=== PATIENT | female | born 1950 | race Caucasian/White ===

== ENCOUNTER 2023-03-25 18:26 | Emergency (ER) | payer MEDICARE, SELFPAY ==
[2023-03-25 18:29] VITALS: BP 162/89; PULSE 68; RESP 15; O2SAT 100; BMI 25.2
[2023-03-25 19:10] VITALS: BP 144/92; PULSE 74; RESP 24; O2SAT 100
--- NOTE | 2023-03-25 19:17 | CTR_ITS ---
PROCEDURE INFORMATION: Exam: CT Cervical Spine Without Contrast Exam date and time: 03/25/2023 7:26 PM Age: 72 years old Clinical indication: Injury or trauma; Fall; Blunt trauma; Injury date: 03/25/23 TECHNIQUE: Imaging protocol: Computed tomography of the cervical spine without contrast. Radiation optimization: All CT scans at this facility use at least one of these dose optimization techniques: automated exposure control; mA and/or kV adjustment per patient size (includes targeted exams where dose is matched to clinical indication); or iterative reconstruction. REPORTING DATA: Count of CT and Cardiac NM exams in prior 12 months: This patient has received 0 known CTs and 0 known cardiac nuclear medicine studies in the 12 months prior to the current study. COMPARISON: No relevant prior studies available. RADIATION DOSE METRICS: Total DLP (mGy-cm): 148.6 FINDINGS: Bones/joints: No acute fracture. Trace anterolisthesis at C3-C4 and C4-C5, most likely degenerative. Chronic degenerative changes without significant spinal stenosis. Lungs: A few small calcified granulomas in the left lung apex. Esophagus: Small calcified right paraesophageal and paratracheal lymph nodes. Soft tissues: Visualized soft tissues demonstrate no acute abnormality. CT/CT cervical spin wo con* [id number] IMPRESSION: 1. No acute fracture. 2. Trace anterolisthesis at C3-C4 and C4-C5, most likely degenerative.
--- NOTE | 2023-03-25 19:17 | CTR_ITS ---
PROCEDURE INFORMATION: Exam: CT Head Without Contrast Exam date and time: 03/25/2023 7:26 PM Age: 72 years old Clinical indication: Injury or trauma; Fall; Blunt trauma (contusions or hematomas); Additional info: Call on doac TECHNIQUE: Imaging protocol: Computed tomography of the head without contrast. Radiation optimization: All CT scans at this facility use at least one of these dose optimization techniques: automated exposure control; mA and/or kV adjustment per patient size (includes targeted exams where dose is matched to clinical indication); or iterative reconstruction. REPORTING DATA: Count of CT and Cardiac NM exams in prior 12 months: This patient has received 0 known CTs and 0 known cardiac nuclear medicine studies in the 12 months prior to the current study. COMPARISON: No relevant prior studies available. RADIATION DOSE METRICS: Total DLP (mGy-cm): 1017.6 FINDINGS: Brain: No other acute intracranial hemorrhage appreciated. 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 Mild chronic white matter changes, likely secondary to chronic small-vessel ischemic changes. Incidental retrocerebellar arachnoid cyst. Cerebral ventricles: No ventriculomegaly. Paranasal sinuses: Visualized sinuses are unremarkable. No fluid levels. Mastoid air cells: Visualized mastoid air cells are well aerated. Bones/joints: Unremarkable. No acute fracture. Soft tissues: Unremarkable. Other findings: Tiny hyperdense focus seen in the anterior left frontal region on image [address]/CT head wo con* [id number] IMPRESSION: 1. Tiny hyperdense focus seen in the anterior left frontal region on image 16 of series 2. Could be a calcification or artifact, but can not exclude a tiny focus of acute subarachnoid hemorrhage. 2. No other acute intracranial hemorrhage appreciated. 3. 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
--- NOTE | 2023-03-25 19:22 | W.ED.HEATRA ---
HPI - Head Injury General: Chief complaint: Head Injury Stated complaint: Hit Head Time Seen by Provider: 03/25/23 18:55 Source: patient and family Mode of arrival: ambulatory Limitations: no limitations History of Present Illness: This patient comes to the emergency department because of a fall injury. She apparently had a fall at home approximately 520 or 530 today. She states this is occurred just like other falls she has. She predominately loses her balance and falls. She has a walker that she is supposed to be using when she ambulates but this was only a short distance and she thought she could make it. She allegedly takes a anticoagulant medication to help with stroke prevention from her atrial fibrillation. She denies any prodrome of lightheadedness, palpitations, syncope etc. She states that she hit her head on the right side. She also apparently has had some mild neck soreness although she always has neck pain from arthritis. She denies any other constitutional complaints at this time. She takes Eliquis for stroke prevention MD Complaint: head injury Location of injury: parietal Associated symptoms: Reports neck pain; Deny nausea, syncope or vomiting Review of Systems Const: Denies: fever(s) or chills Eyes: Denies: change in vision Card: Reports: irregular heart rhythm; Denies: chest pain, syncope or pre-syncope Resp: Denies: dyspnea, productive cough or non-productive cough GI: Denies: abdominal pain, nausea, vomiting or diarrhea Musc: Reports: neck pain; Denies: back pain, extremity pain or extremity swelling Skin/Breast: Denies: rash Neuro: Reports: headache(s) and frequent falls; Denies: numbness in extremities, weakness in extremities, Slurred speech present or seizure-like activity Psych: Denies: anxiety, depression or mood swings Physical Exam Narrative: EXAM NARRATIVE: He appears to be alert and in no acute distress. She makes good eye contact and her speech is goal-directed. Const: COMMON NORMALS: no acute distress, average body habitus, patient oriented x3 and alert GENERAL APPEARANCE: cooperative and comfortable HENMT: COMMON NORMALS: normocephalic and atraumatic HEAD & SCALP: normocephalic and atraumatic; no contusion, no hematoma, no laceration and no palpable skull fracture FACE & SINUS: normal facial exam Eye: COMMON NORMALS: Equal, round and reactive pupils present, EOMs intact bilaterally and conjunctivae normal CONJUNCTIVA: Yes conjunctivae normal PUPIL: Yes Equal, round and reactive pupils present Neck/C-Spine: COMMON NORMALS: full ROM CERVICAL SPINE: No Cervical spine tenderness, No step off deformity, No Paracervical muscle tenderness, No Paracervical spasm and No Trapezius muscle tenderness Chest: COMMONS NORMALS: normal inspection of the chest and normal palpation of entire chest wall Resp: COMMON NORMALS: normal respiratory effort, No retractions and clear to auscultation bilaterally EFFORT & INSPECTION: Yes able to speak in complete sentences AUSCULTATION: clear to auscultation bilaterally Cardio: COMMON NORMALS: regular rate, regular rhythm, No murmurs present (Cardio) and Peripheral pulses 2+ throughout RATE: regular rate RHYTHM: regular rhythm PERIPHERAL PULSES: Peripheral pulses 2+ throughout GI: COMMON NORMALS: Normal to inspection, nondistended, normoactive bowel sounds present : COMMON NORMALS: Yes no CVA tenderness BLADDER/KIDNEY EXAM: Yes no CVA tenderness Back/Pelvis: COMMON NORMALS: no CVA tenderness and thoracic and lumbar spine normal to inspection Extremity: COMMON NORMALS: normal to inspection, full ROM, capillary refill normal, no calf tenderness and no pedal edema Neuro: COMMON NORMALS: patient oriented x3, moves all extremities, no focal motor deficits and no sensory deficits noted SENSORIUM/ORIENTATION: Yes alert CRANIAL NERVES: Yes CN normal except as noted Course Reevaluation(s): Reevaluation #1: Repeat evaluation reveals the patient to be stable any new or focal findings on reexamination. I discussed current findings with both she and family. Advised no apixaban for the next 24 hours. Also discussed return precautions. Time: 21:10 Consultations: Consultation #1: Placed a consultation into neurosurgery at [facility] and the neurosurgeon on-call Dr. Pulido is gracious enough to review the CT scans and provide input that he did not think it was a significant finding on her current CT scan based upon his review. Time: 21:08 Vital Signs: Vital signs: Vital Signs Pulse Rate 71 03/25/23 20:37 Respiratory Rate 24 H 03/25/23 20:37 Blood Pressure 157/115 03/25/23 20:37 Pulse Oximetry 94 03/25/23 20:37 Oxygen Delivery Me thod Room Air 03/25/23 19:10 MDM - Head Injury Medcial Decision Making This 72-year-old lady who has history of remote stroke who has had balance issues as a result of that event and currently takes apixaban because of atrial fibrillation to reduce stroke risk is our emergency department today because of a ground-level fall. She states that she was just planning on walking a very short distance of a few steps and stood up to do so and then went up falling striking her head. She normally uses a walker for aiding in her ambulation but did not use that for the short walk. She had no other complaints of other injury. There was no prodrome of syncope lightheadedness chest pain etc. Clinical examination is reassuring at . She had a GCS of 15. She had no evidence of scalp laceration. She had minimal tenderness to the right frontal region. There is no step-off etc. Her cervical spine was unremarkable for any midline tenderness or step-off and she had normal range of motion. Imaging was obtained which was notable and that the radiologist had some question about a single slice whether or not it represented any pathologic changes such as a minute subarachnoid hemorrhage etc. Her cervical spine was unremarkable. We are able to obtain a consultation from neurosurgery at [facility] who reviewed CT scans and did not feel that it represented a pathologic issue at this time. Her risk of delayed bleeding is extremely low and DOACs by current literature support however not 0. This was discussed with patient and her accompanying family. We did recommend that she not take her apixaban for 24 hours and then resume normal dosing. We also discussed return precautions. Stable at this time for discharge with family care. Lab Data I reviewed the patient's lab results. Radiology Impressions Cervical Spine CT 03/25/23 19:17 IMPRESSION: 1. No acute fracture. 2. Trace anterolisthesis at C3-C4 and C4-C5, most likely degenerative. Head CT 03/25/23 19:17 IMPRESSION: 1. Tiny hyperdense focus seen in the anterior left frontal region on image 16 of series 2. Could be a calcification or artifact, but can not exclude a tiny focus of acute subarachnoid hemorrhage. 2. No other acute intracranial hemorrhage appreciated. 3. 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 ADDENDUM: 03/25/232004 THIS REPORT CONTAINS FINDINGS THAT MAY BE CRITICAL TO PATIENT CARE. The findings were verbally communicated via telephone conference with DALLAS Romo at 8:04 PM CDT on 03/25/2023. The findings were acknowledged and understood. All radiology interpretation(s) finalized by discharge EKG Data EKG 1: I personally reviewed and interpreted this EKG as follows: Interpretation: Contemporaneous review of resting EKG reveals a ventricular rate of 69 bpm. Rhythm is consistent with atrial fibrillation with a controlled ventricular response. QRS duration is normal. Corrected QT intervals normal. She has no acute ST-T wave changes noted. Discharge Plan Discharge Patient Disposition: Home Clinical Impression: Fall from ground level, Closed head injury, Atrial fibrillation, chronic Condition: Stable Prescriptions: No Action Unable to Assess Discharge Orders: Discharge ED (Routine); Ordered 03/25/23 Ordered By: Dallas Greenfield Referrals: Jameel Fry DO [Primary Care Provider] - Discharge Diet: Advance as tolerated Discharge Activity: Increase activity as tolerated Patient Instructions: Opioid Safety, Pain Management Activity Restrictions/Additional Instructions: As we discussed there was no evidence of intracranial hemorrhage, skull fracture, neck fracture etc. We recommend you do not take your Eliquis (apixaban) tonight or tomorrow morning and if you are doing well you may resume your usual dosing tomorrow evening. If it anytime you develop increasing headache, weakness numbness, repetitive vomiting or any other concerns return to this emergency department for reevaluation. Coding Level of Care Code ED [place] Installer for Saul Smith
--- NOTE | 2023-03-25 20:16 | ECG_ITS ---
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 Measurements Intervals [place] Rate: 69 P: 0 AR: 0 QRS: -13 QRSD: 85 T: 30 QT: 420 QTc: 450 Interpretive Statements ATRIAL FIBRILLATION POSSIBLE ANTERIOR MYOCARDIAL INFARCTION , PROBABLY OLD [30 ms Q WAVE IN V3/V4, OR R < 0.2 mV IN V4] ABNORMAL RHYTHM ECG No previous ECG available for comparison Electronically Signed On 03-26-2023 11:12:09 CDT by Juliocesar Horan M.D. [email or web address]
[2023-03-25 20:37] VITALS: BP 157/115; PULSE 71; RESP 24; O2SAT 94
== END 2023-03-25 21:30 | disposition home or self-care (01) ==
PROVIDERS: Emergency Provider Emergency Medicine; PCP Family Medicine
DX: S09.8XXA Other specified injuries of head, initial encounter (principal); I48.20 Chronic atrial fibrillation, unspecified; W19.XXXA Unspecified fall, initial encounter; Z79.01 Long term (current) use of anticoagulants
CPT/HCPCS: 70450; 72125; 93005; 99284